=== PATIENT | female | born 1955 | race Caucasian/White ===

== ENCOUNTER 2016-10-21 11:17 | Emergency (ER) | payer BC, OTHER ==
[~2016-10-21] VITALS: Ht 167.6 cm; Wt 108.9 kg
[~2016-10-21 11:17] MED LIST: ACEB200C PO; ACET-2605 PO; AMLO10TA2 PO; BUSP5TAB3 PO; CITA20TA11 PO; CLON0.1T PO; CYCL-343 PO; DICL50TA9 PO; FAMO20TA8 PO; FERR-58 PO; GABA-534 PO; LORA1TAB PO; METF500T4 PO; SAXA5TAB PO; TELM80TA2 PO
[2016-10-21 11:30] VITALS: BP 142/81
== END 2016-10-21 11:31 | disposition left against medical advice (07) ==
LOC: ER 11:19
DX: Z53.21 Procedure and treatment not carried out due to patient leaving prior to being seen by health care provider (principal)
CPT/HCPCS: A4606; Z7610

== ENCOUNTER 2017-07-30 14:32 | Emergency (ER) | payer BC, MEDICAID, OTHER ==
[~2017-07-30] VITALS: Ht 170.2 cm; Wt 102.1 kg
[2017-07-30 14:32] VITALS: BP 145/77
== END 2017-07-30 15:44 | disposition home or self-care (01) ==
LOC: ER 14:34
DX: L03.115 Cellulitis of right lower limb (principal); I10 Essential (primary) hypertension; E11.9 Type 2 diabetes mellitus without complications; C50.912 Malignant neoplasm of unspecified site of left female breast; Z79.84 Long term (current) use of oral hypoglycemic drugs
CPT/HCPCS: 99283; A4606; Z7610

== ENCOUNTER 2019-01-02 15:29 | Emergency (ER) | payer MEDICARE, OTHER ==
[~2019-01-02] VITALS: Ht 167.6 cm; Wt 99.8 kg
[~2019-01-02 15:29] MED LIST changes: -AMLO10TA2 PO; +AMLO10TA7 PO; -CITA20TA11 PO; +CITA20TA16 PO; -CYCL-343 PO; +CYCL10TA9 PO; -FERR-58 PO; +FERR325T24 PO; +METF-440 PO; -METF500T4 PO
--- NOTE | 2019-01-02 15:45 | NUR ---
PATIENT A/OX3, GENERALIZED WEAKNESS, DIZZINESS, DIARRHEA X 1 WEEK, BREATHING EVEN AND UNLABORED, NO SOB NOTED, PLACED ON THE MONITOR. AWAITING FOR MD BOUDREAUX.
[2019-01-02] MEDS ORDERED: ONDANSETRON HCL/PF 4 MG/2 ML VIAL ONE (16:19)
[2019-01-02 16:22] LABS: BASOPHILS # (AUTO) 0.1 /CMM (0.0-0.2); BASOPHILS % (AUTO) 1.9 % (0.0-2.0); EOSINOPHILS % (AUTO) 4.1 % (0.0-6.0); HEMATOCRIT 32 % (33-45); HEMOGLOBIN 10.8 g/dL (11.5-14.8); LYMPHOCYTES # (AUTO) 1.4 /CMM (0.8-4.8); LYMPHOCYTES % (AUTO) 35.6 % (20.0-44.0); MEAN CORPUSCULAR HGB CONC 34 g/dl (31.0-36.0); MEAN CORPUSCULAR VOLUME 94 fL (82-100); MONOCYTES # (AUTO) 0.4 /CMM (0.1-1.30); MONOCYTES % (AUTO) 8.9 % (2.0-12.0); NEUTROPHILS % (AUTO) 49.5 % (43.0-81.0); PLATELET COUNT (AUTO) 102 /CMM (150-450); RED BLOOD CELL COUNT(AUTO) 3.43 MIL/uL (4.0-5.2)
[2019-01-02] MEDS ORDERED: ONDANSETRON HCL/PF 4 MG/2 ML VIAL IVP ONE (16:30)
[2019-01-02] MEDS ORDERED: IV NS 0.9% 1,000 ML BAG IV ONE ×2 (16:30)
[2019-01-02 16:34] LABS: CALCIUM, SERUM 8.3 mg/dL (8.5-10.1); CREATININE 1.2 mg/dL (0.6-1.3); POTASSIUM 3.6 mmol/L (3.5-5.1)
[2019-01-02 16:40] LABS: BILIRUBIN,DIRECT 0.1 mg/dL (0.0-0.2); BILIRUBIN,TOTAL 0.2 mg/dL (0.2-1.0); TOTAL PROTEIN, SERUM 7.8 g/dL (6.4-8.2)
--- NOTE | 2019-01-02 17:50 | NUR ---
ASSISTED PATIENT TO RESTROOM.
--- NOTE | 2019-01-02 18:46 | NUR ---
Patient discharged to home in stable condition. Written and verbal after care instructions given. Patient and daughter verbalizes understanding of instruction. Peripheral IV removed.
[2019-01-02 18:48] VITALS: BP 151/63
== END 2019-01-02 18:50 | disposition home or self-care (01) ==
LOC: ER 15:33
DX: R19.7 Diarrhea, unspecified (principal); I10 Essential (primary) hypertension; E11.65 Type 2 diabetes mellitus with hyperglycemia; Z85.3 Personal history of malignant neoplasm of breast
CPT/HCPCS: 36415; 71045; 74176; 80048; 80076; 82962; 85025; 93005; 96361; 96374; 99284; J2405; J7030 ×2